=== PATIENT | male | born 1945 | race Caucasian/White ===

== ENCOUNTER 2017-09-25 09:23 | Day surgery (SDC) | payer OTHER ==
[~2017-09-25] VITALS: Ht 170.2 cm; Wt 83.0 kg
[~2017-09-25 09:23] MED LIST: CELE100C PO
[2017-09-25] MEDS ORDERED: LIDOCAINE 2% 100 MG/5 ML UJET TP ONE (10:28)
[2017-09-25] MEDS ORDERED: KETOROLAC 30 MG/ML VIAL ONE (10:39)
[2017-09-25] MEDS ORDERED: KETOROLAC 30 MG/ML VIAL IVP SCH (12:30)
[2017-09-25] MEDS ORDERED: EPINEPHrine PFS 0.1 MG/ML SYR IVP ONE (12:58)
== END 2017-09-25 13:10 | disposition home or self-care (01) ==
LOC: MDS 09:23 → MMU 09:29 → MDS 13:10
PROVIDERS: ATTEND Internal Medicine Gastroenterology
DX: K63.5 Polyp of colon (principal); D12.2 Benign neoplasm of ascending colon; D12.3 Benign neoplasm of transverse colon; I10 Essential (primary) hypertension; G47.00 Insomnia, unspecified; Z98.890 Other specified postprocedural states; Z79.899 Other long term (current) drug therapy; Z68.27 Body mass index [BMI] 27.0-27.9, adult
CPT/HCPCS: 45385; 88305; J0171; J1885

== ENCOUNTER 2017-10-30 06:38 | Day surgery (SDC) | payer OTHER ==
[~2017-10-30] VITALS: Ht 167.6 cm; Wt 83.9 kg
[2017-10-30] MEDS ORDERED: TEMA30CA23 PO (07:39)
[2017-10-30] MEDS ORDERED: [UNRECOGNIZED DRUG - OTHER] (07:41)
[2017-10-30] MEDS ORDERED: LIDOCAINE 2% 100 MG/5 ML UJET TP ONE (08:03)
[2017-10-30] MEDS ORDERED: LABETALOL 100 MG/20 ML VIAL ONE (09:29)
[2017-10-30] MEDS ORDERED: EPINEPHrine PFS 0.1 MG/ML SYR IVP ONE (09:29)
[2017-10-30] MEDS ORDERED: LABETALOL 100 MG/20 ML VIAL IVP ONE (09:45)
== END 2017-10-30 10:38 | disposition home or self-care (01) ==
LOC: MDS 06:38 → MMU 06:39 → MDS 10:38
PROVIDERS: ATTEND Internal Medicine Gastroenterology
DX: D12.3 Benign neoplasm of transverse colon (principal); I10 Essential (primary) hypertension; Z86.010 Personal history of colon polyps; Z98.890 Other specified postprocedural states; Z79.899 Other long term (current) drug therapy; Z68.27 Body mass index [BMI] 27.0-27.9, adult
CPT/HCPCS: 45381; 45385; 88305; J0171; J3490

== ENCOUNTER 2018-03-03 13:07 | Emergency (ER) | payer OTHER ==
[~2018-03-03] VITALS: Ht 172.7 cm; Wt 79.0 kg
[~2018-03-03 13:07] MED LIST changes: +TEMA30CA23 PO; +[UNRECOGNIZED DRUG - OTHER]
[2018-03-03 13:18] VITALS: BP 153/92
--- NOTE | 2018-03-03 13:25 | NUR ---
PT AMBULATES TO BED 11
--- NOTE | 2018-03-03 13:29 | NUR ---
PATIENT PRESENTS TO ED after being seen at a clinic after a fall at home resulting in two skin lacerations: Left hand, Right elbow. Wounds are visibly open and bruised. PT STATES he fell down 2 steps at home this morning. Denies hitting his head. DENIES N/V/D; SKIN IS PINK/WARM/DRY; AAOX4 WITH EVEN AND STEADY GAIT; LUNGS CLEAR BL; HR EVEN AND REGULAR; PT DENIES ANY FEVER, CP, SOB, OR COUGH AT THIS TIME; PATIENT STATES PAIN OF 0/10 AT THIS TIME; VSS; PATIENT POSITIONED FOR COMFORT; HOB ELEVATED; BEDRAILS UP X2; BED DOWN. ER MD MADE AWARE OF PT STATUS.
--- NOTE | 2018-03-03 14:10 | NUR ---
DR CASTILLO AT BEDSIDE
--- NOTE | 2018-03-03 14:25 | NUR ---
PT TO XRAY IN STABLE CONDITION VIA W/C WITH CAR REPAIRER HELPER
--- NOTE | 2018-03-03 14:52 | NUR ---
Patient discharged with v/s stable. Written and verbal after care instructions given and explained. Patient verbalized understanding. Ambulatory with steady gait. All questions addressed prior to discharge. Advised to follow up with PMD. ARM BAND REMOVED
[2018-03-03 14:55] VITALS: BP 153/92
== END 2018-03-03 14:52 | disposition home or self-care (01) ==
LOC: MED 13:07
DX: S51.011A Laceration without foreign body of right elbow, initial encounter (principal); S60.221A Contusion of right hand, initial encounter; I10 Essential (primary) hypertension; F17.200 Nicotine dependence, unspecified, uncomplicated; Z79.899 Other long term (current) drug therapy; W11.XXXA Fall on and from ladder, initial encounter; Y93.89 Activity, other specified; Y92.89 Other specified places as the place of occurrence of the external cause; Y99.8 Other external cause status
CPT/HCPCS: 73130; 90471; 90715; 99284

== ENCOUNTER 2018-10-21 13:27 | Emergency (ER) | payer OTHER ==
[~2018-10-21] VITALS: Ht 175.3 cm; Wt 77.7 kg
[2018-10-21 13:30] VITALS: BP 154/90
--- NOTE | 2018-10-21 13:45 | NUR ---
pt c/o of right shoulder and hip pain. The patient reports that he had a mechanical fall 2 days ago. He reports that he went to see his PCP this morning and was referred to the ED for further evaluation and treatment. Currently, he rates his pain a 4/10 in intensity and describes it as a dull pain. He reports that his pain is exacerbated with movement. DENIES N/V/D; SKIN IS PINK/WARM/DRY; AAOX4 WITH EVEN AND STEADY GAIT; LUNGS CLEAR BL; HR EVEN AND REGULAR; PT DENIES ANY FEVER, CP, SOB, OR COUGH AT THIS TIME; VSS; PATIENT POSITIONED FOR COMFORT; HOB ELEVATED; BEDRAILS UP X1; BED DOWN. ER MD MADE AWARE OF PT STATUS.
[2018-10-21] MEDS ORDERED: IBUPROFEN 400 MG TAB PO ONE (13:50)
--- NOTE | 2018-10-21 13:57 | NUR ---
Pt refused to take Motrin, and took 2 pills of his own Ibuprofen.
[2018-10-21] MEDS ORDERED: IBUP-1842 PO (14:09)
[2018-10-21 14:41] VITALS: BP 145/66
== END 2018-10-21 14:42 | disposition home or self-care (01) ==
LOC: MED 13:27
DX: S49.91XA Unspecified injury of right shoulder and upper arm, initial encounter (principal); M25.551 Pain in right hip; I10 Essential (primary) hypertension; F17.200 Nicotine dependence, unspecified, uncomplicated; I25.10 Atherosclerotic heart disease of native coronary artery without angina pectoris; Z79.899 Other long term (current) drug therapy; W19.XXXA Unspecified fall, initial encounter; Y92.89 Other specified places as the place of occurrence of the external cause; Y93.89 Activity, other specified; Y99.8 Other external cause status
CPT/HCPCS: 73030; 99283; Q0092